=== PATIENT | male | born 1970 | race Two or more races ===

== ENCOUNTER 2020-09-15 16:12 | Emergency (ER) | payer OTHER ==
[~2020-09-15] VITALS: Ht 172.7 cm; Wt 95.3 kg
[2020-09-15 16:16] VITALS: BP 117/69
[2020-09-15 17:17] LABS: Basophils # (auto) 0.1 10 ^3/uL (0-0.2); Basophils % (auto) 1.1 % (0.0-2.0); Eosinophils # (auto) 0.3 10 ^3/uL (0-0.8); Eosinophils % (auto) 3.8 % (0.0-7.0); Hematocrit 43.8 % (41.0-53.0); Hemoglobin 15.1 g/dL (13.5-17.5); Lymphocytes # (auto) 3.1 10 ^3/uL (0.4-5.4); Lymphocytes % (auto) 35.1 % (10.0-50.0); Mean Corpuscular Hemoglobin 30.6 pg (28.0-32.0); Mean Corpuscular Hgb Conc. 34.6 g/dL (32.0-36.0); Mean Corpuscular Volume 88.4 fL (80.0-100.0); Monocytes # (auto) 0.7 10 ^3/uL (0-1.3); Neutrophils # (auto) 4.5 10 ^3/uL (1.6-8.6); Nucleated Red Blood Cells % 0.2 %; Platelet Count (auto) 267 10^3/uL (140-450); Red Blood Cells 4.96 10^6/uL (4.5-5.90); Red Cell Distribution Width 12.6 % (11.8-14.3); White Blood Cell 8.7 10^3/uL (4.4-10.8)
[2020-09-15 17:35] LABS: BUN/Creatinine Ratio 26.7; Calcium 8.7 mg/dL (8.5-10.1); Potassium 3.9 mmol/L (3.5-5.1)
[2020-09-15 17:37] LABS: Bilirubin, Total 0.5 mg/dL (0.2-1.0); Total Protein 7.8 g/dL (6.4-8.2)
[2020-09-15 17:58] LABS: INR 0.95 (0.9-1.15); Partial Thromboplastin Time 27.9 sec (23.0-31.2)
== END 2020-09-15 19:42 | disposition left against medical advice (07) ==
LOC: ER 16:12
DX: M71.21 Synovial cyst of popliteal space [Baker], right knee (principal)
CPT/HCPCS: 36415; 80053; 85025; 85610; 85730; 93005; 93971